=== PATIENT | male | born 1995 | race Two or more races ===

== ENCOUNTER 2021-05-25 07:29 | Outpatient (CLI) | payer OTHER | END 2021-05-25 07:30 | disposition home or self-care (01) | LOC: LAB 07:29 | PROVIDERS: ATTEND General Practice | DX: U07.1 COVID-19 (principal) ==

== ENCOUNTER 2021-07-22 08:00 | Outpatient (CLI) | payer OTHER | END 2021-07-22 08:30 | disposition home or self-care (01) | LOC: PPH VACUNA 08:00 | PROVIDERS: ATTEND Emergency Medicine Pediatric Emergency Medicine | DX: Z23 Encounter for immunization (principal) ==

== ENCOUNTER 2021-09-06 16:18 | Outpatient (CLI) | payer OTHER | END 2021-09-06 16:24 | disposition home or self-care (01) | LOC: LAB 16:18 | PROVIDERS: ATTEND Emergency Medicine | DX: D50.9 Iron deficiency anemia, unspecified (principal) ==

== ENCOUNTER 2021-12-11 02:04 | Emergency (ER) | payer OTHER ==
[~2021-12-11] VITALS: Ht 165.1 cm; Wt 58.5 kg
== END 2021-12-11 04:20 | disposition left against medical advice (07) ==
LOC: ER 02:04
DX: Z53.21 Procedure and treatment not carried out due to patient leaving prior to being seen by health care provider (principal)

== ENCOUNTER → 2021-12-23 09:47 | Outpatient (CLI) | payer OTHER | END | disposition home or self-care (01) | LOC: LAB 09:47 | PROVIDERS: ATTEND General Practice | DX: N39.9 Disorder of urinary system, unspecified (principal) ==

== ENCOUNTER → 2022-05-08 10:56 | Outpatient (CLI) | payer OTHER | END | disposition home or self-care (01) | LOC: LAB 10:56 | PROVIDERS: ATTEND Radiology Diagnostic Radiology | DX: R53.81 Other malaise (principal) ==

== ENCOUNTER 2022-07-06 13:21 | Emergency (ER) | payer OTHER ==
[~2022-07-06] VITALS: Ht 165.1 cm; Wt 59.0 kg
== END 2022-07-06 17:12 | disposition home or self-care (01) ==
LOC: ER 13:21
DX: M62.838 Other muscle spasm (principal); M25.512 Pain in left shoulder

== ENCOUNTER 2022-10-22 10:36 | Emergency (ER) | payer OTHER ==
[~2022-10-22] VITALS: Ht 165.1 cm; Wt 59.0 kg
== END 2022-10-22 12:45 | disposition home or self-care (01) ==
LOC: ER 10:36
DX: U07.1 COVID-19 (principal); Z88.8 Allergy status to other drugs, medicaments and biological substances; Z91.013 Allergy to seafood